=== PATIENT | female | born 1960 | race Caucasian/White ===

== ENCOUNTER 2017-10-01 07:55 | Day surgery (SDC) | payer BC ==
[~2017-10-01] VITALS: Ht 152.4 cm; Wt 71.6 kg
[~2017-10-01 07:55] MED LIST: ALBUTEROL SULFATE 2.5 MG/3 ML NPPB ONE; ALBUTEROL/IPRATROPIUM 2.5MG/0.5MG, 3 ML NEB ONE
[2017-10-01] MEDS ORDERED: LIDOCAINE-MPF 2% ,5ML ONE (08:00)
[2017-10-01] MEDS ORDERED: LIDOCAINE 4% TOPICAL SOLUTION 50 ML ONE (08:00)
[2017-10-01] MEDS ORDERED: SODIUM CHLORIDE 0.9% 1,000 ML IV SCH (08:27)
[2017-10-01 08:29] VITALS: BP 143/90
[2017-10-01] MEDS ORDERED: CHOL400D3 PO (09:32)
[2017-10-01] MEDS ORDERED: OMEG1CAP24 PO (09:32)
[2017-10-01] MEDS ORDERED: POTA99TA24 PO (09:32)
[2017-10-01] MEDS ORDERED: MULT-231 PO (09:32)
[2017-10-01] MEDS ORDERED: ALPR0.5T PO (09:32)
[2017-10-01] MEDS ORDERED: FEXO180T72 PO (09:32)
[2017-10-01] MEDS ORDERED: PRED50TA PO (09:32)
[2017-10-01] MEDS ORDERED: FENTANYL PF 100 MCG/2ML ONE (09:36)
[2017-10-01] MEDS ORDERED: MIDAZOLAM 1 MG/ML, 5ML ONE (09:37)
[2017-10-01] MEDS ORDERED: DIPHENHYDRAMINE 50 MG/ML, 1ML ONE (11:54)
[2017-10-01] MEDS ORDERED: ALBUTEROL SULFATE 2.5 MG/3 ML ONE ×2 (12:59→14:02)
== END 2017-10-01 15:00 | disposition home or self-care (01) ==
LOC: OUT 07:55
PROVIDERS: ATTEND Internal Medicine
DX: J45.50 Severe persistent asthma, uncomplicated (principal); Z79.899 Other long term (current) drug therapy; Z88.1 Allergy status to other antibiotic agents
CPT/HCPCS: 31660; 94060; 94640; 99152; 99153; J1200; J2250; J3010; J3490; J7030; J7613

== ENCOUNTER 2017-10-22 09:00 | Day surgery (SDC) | payer BC ==
[~2017-10-22] VITALS: Ht 152.4 cm; Wt 72.3 kg
[~2017-10-22 09:00] MED LIST changes: -ALBUTEROL SULFATE 2.5 MG/3 ML NPPB ONE; -ALBUTEROL/IPRATROPIUM 2.5MG/0.5MG, 3 ML NEB ONE; +ALPR0.5T PO; +CHOL400D3 PO; +FEXO180T72 PO; +MULT-231 PO; +OMEG1CAP24 PO; +POTA99TA24 PO; +PRED50TA PO
[2017-10-22] MEDS ORDERED: FENTANYL PF 100 MCG/2ML ONE (09:26)
[2017-10-22] MEDS ORDERED: MIDAZOLAM 1 MG/ML, 5ML ONE (09:26)
[2017-10-22] MEDS ORDERED: PLEASE ENTER HEIGHT AND WEIGHT MC SCH (09:30)
[2017-10-22] MEDS ORDERED: ALBUTEROL SULFATE 2.5 MG/3 ML ONE (09:32)
[2017-10-22] MEDS ORDERED: SODIUM CHLORIDE 0.9% 1,000 ML IV SCH (09:32)
[2017-10-22] MEDS: ALBUTEROL SULFATE 2.5 MG/3 ML NPPB PRN ×2 (09:59→13:30)
[2017-10-22] MEDS ORDERED: GLYCOPYRROLATE 0.4 MG/2 ML, 2ML IM ONE (10:00)
[2017-10-22] MEDS ORDERED: DIPHENHYDRAMINE 50 MG/ML, 1ML IVPush ONE (10:00)
[2017-10-22] MEDS ORDERED: LIDOCAINE 2%, 50ML ONE (15:54)
[2017-10-22] MEDS ORDERED: LIDOCAINE 4% TOPICAL SOLUTION 50 ML ONE (15:54)
== END 2017-10-22 14:10 ==
LOC: OUT 09:00
PROVIDERS: ATTEND Internal Medicine
DX: J98.4 Other disorders of lung (principal); Z88.1 Allergy status to other antibiotic agents
CPT/HCPCS: 31660; 94060; 94640; 99152; 99153; J2250; J3010; J7613

== ENCOUNTER 2017-11-12 08:26 | Day surgery (SDC) | payer BC ==
[~2017-11-12] VITALS: Ht 152.4 cm; Wt 71.1 kg
[~2017-11-12 08:26] MED LIST changes: +LIDOCAINE 2%, 20ML ONE; +LIDOCAINE 4% TOPICAL SOLUTION 50 ML ONE; +LIDOCAINE GEL 2%, 5ML ONE
[2017-11-12 09:21] VITALS: BP 133/90
[2017-11-12] MEDS ORDERED: singular PO (09:32)
[2017-11-12] MEDS ORDERED: LACTATED RINGERS 1,000 ML IV SCH (09:44)
[2017-11-12] MEDS ORDERED: ALBUTEROL SULFATE 2.5 MG/3 ML ONE ×2 (10:14→13:39)
[2017-11-12] MEDS ORDERED: FENTANYL PF 100 MCG/2ML ONE (10:28)
[2017-11-12] MEDS ORDERED: PROPOFOL 10 MG/ML, 20ML ONE (10:41)
[2017-11-12] MEDS ORDERED: ONDANSETRON ODT 4 MG ONE (10:41)
[2017-11-12] MEDS ORDERED: GLYCOPYRROLATE 0.2MG/1ML, 5ML ONE (10:41)
[2017-11-12] MEDS ORDERED: NEOSTIGMINE 1 MG/ML, 10ML ONE (10:41)
[2017-11-12] MEDS ORDERED: ROCURONIUM 10MG/ML,5ML ONE (10:41)
[2017-11-12] MEDS ORDERED: DEXAMETHASONE 4 MG/ML, 1ML ONE (10:41)
[2017-11-12] MEDS ORDERED: FENTANYL PF 100 MCG/2ML IV PRN (11:30)
[2017-11-12] MEDS ORDERED: LABETALOL 5MG/ML, 20ML IV PRN (11:30)
[2017-11-12] MEDS ORDERED: MORPHINE SULFATE 4 MG/ML, 1ML IVPush PRN (11:30)
[2017-11-12] MEDS ORDERED: OXYcodone 5 MG/5 ML ORAL.SOL UDC PO PRN (11:30)
[2017-11-12] MEDS ORDERED: PROMETHAZINE 25 MG/ML, 1ML IM PRN (11:30)
[2017-11-12] MEDS ORDERED: ACETAMINOPHEN 325 MG TABLET PO PRN (11:30)
[2017-11-12] MEDS ORDERED: PROMETHAZINE 25 MG/ML, 1ML IV PRN (11:30)
[2017-11-12] MEDS ORDERED: hydrALAzine 20 MG/ML, 1ML IV PRN (11:30)
[2017-11-12] MEDS ORDERED: HYDROmorphone 1 MG/ML, 1ML IV PRN (11:30)
[2017-11-12] MEDS ORDERED: ALBUTEROL/IPRATROPIUM 2.5MG/0.5MG, 3 ML NPPB PRN (11:30)
[2017-11-12] MEDS ORDERED: PROMETHAZINE 25 MG SUPP PR PRN (11:30)
== END 2017-11-12 14:25 ==
LOC: OUT 08:26
PROVIDERS: ATTEND Internal Medicine
DX: J45.50 Severe persistent asthma, uncomplicated (principal); G47.36 Sleep related hypoventilation in conditions classified elsewhere; F41.9 Anxiety disorder, unspecified; I10 Essential (primary) hypertension; Z88.1 Allergy status to other antibiotic agents
CPT/HCPCS: 31661; 94060; 94640; C1886; J1100; J2704; J2710; J3010; J3490; J7120; Q0162; 31660

== ENCOUNTER 2019-07-14 16:45 | Emergency (ER) | payer BC ==
[~2019-07-14] VITALS: Ht 154.9 cm; Wt 72.0 kg
[~2019-07-14 16:45] MED LIST changes: -LIDOCAINE 2%, 20ML ONE; -LIDOCAINE 4% TOPICAL SOLUTION 50 ML ONE; -LIDOCAINE GEL 2%, 5ML ONE; -MULT-231 PO; +MULT-290 PO; +singular PO
[2019-07-14] MEDS ORDERED: PROPOFOL 10 MG/ML, 20ML ONE (17:38)
[2019-07-14] MEDS ORDERED: HYDROmorphone 1 MG/ML, 1ML INJ ONE (18:19)
[2019-07-14] MEDS ORDERED: PROPOFOL 10 MG/ML, 20ML IVPush ONE (18:30)
[2019-07-14] MEDS ORDERED: HYDROmorphone 2 MG/ML, 1ML IVPush PRN (18:30)
[2019-07-14] MEDS ORDERED: ONDANSETRON 2MG/ML, 2ML IVPush ONE (18:30)
[2019-07-14 19:39] VITALS: BP 135/86
== END 2019-07-14 19:43 | disposition home or self-care (01) ==
LOC: ED 17:45
DX: S83.014A Lateral dislocation of right patella, initial encounter (principal); W01.0XXA Fall on same level from slipping, tripping and stumbling without subsequent striking against object, initial encounter; Y93.89 Activity, other specified; Y92.098 Other place in other non-institutional residence as the place of occurrence of the external cause; Y99.8 Other external cause status
CPT/HCPCS: 99152; 99285

== ENCOUNTER 2020-10-30 12:29 | Outpatient (CLI) | payer BC | END 2020-10-30 23:59 | disposition home or self-care (01) | LOC: CFH 12:29 | PROVIDERS: ATTEND Nurse Practitioner | DX: S52.121A Displaced fracture of head of right radius, initial encounter for closed fracture (principal); X58.XXXA Exposure to other specified factors, initial encounter; Y93.89 Activity, other specified; Y92.89 Other specified places as the place of occurrence of the external cause; Y99.8 Other external cause status ==